=== PATIENT | male | born 1990 | race Caucasian/White ===

== ENCOUNTER → 2016-08-27 | Outpatient (CLI) | payer OTHER ==
[2016-08-27 14:42] LABS: CHOLESTEROL/HDL RATIO 2.4
== END | disposition home or self-care (01) ==
LOC: C.LABBC 09:24
PROVIDERS: ATTEND Family Medicine
DX: E78.2 Mixed hyperlipidemia (principal); R94.5 Abnormal results of liver function studies

== ENCOUNTER 2017-11-09 17:22 | Emergency (ER) | payer OTHER ==
[~2017-11-09] VITALS: Ht 188 cm; Wt 75.2 kg
[2017-11-09 17:27] VITALS: TEMP 36.7; Ht 188 cm; Wt 75.2 kg
[2017-11-09] MEDS ORDERED: KETOROLAC TROMETHAMINE 30 MG/ML VIAL IV STA (17:38)
[2017-11-09] MEDS ORDERED: SODIUM CHLORIDE 0.9% 1000ML 1,000 ML IV ONE (17:45)
[2017-11-09 18:01] LABS: BASO % 0.2 %; BASO ABS # 0.02 K/uL (0-0.2); EOS % 2.1 %; EOS ABS # 0.18 K/uL (0-0.5); HEMATOCRIT 44.5 % (42-52); IG# 0.03 K/uL (0.00-0.02); LYMPH % 23.6 %; LYMPH ABS # 1.99 K/uL (1.2-3.4); MEAN CELL VOLUME 85.6 fL (80-100); MEAN CORPUSCULAR HEMOGLOBIN 30.8 pg (25-34); MEAN PLATELET VOLUME 9.4 fL (7.4-10.4); MONO % 6.6 %; MONO ABS # 0.56 K/uL (0.11-0.59); NEUT % 67.1 %; NEUT ABS # 5.65 K/uL (1.4-6.5); PLATELET COUNT 254 K/uL (130-400); RED CELL DISTRIBUTION WIDTH CV 12.3 % (11.5-14.5); RED CELL DISTRIBUTION WIDTH SD 38.5 fL (36.4-46.3); WHITE BLOOD COUNT 8.43 K/uL (4.8-10.8)
[2017-11-09] MEDS ORDERED: INDO-22 PO (18:01)
[2017-11-09 18:18] LABS: CALCIUM 9.4 mg/dl (8.5-10.1); CREATININE 1.07 mg/dl (0.60-1.40); POTASSIUM 3.6 mmol/L (3.5-5.1); URIC ACID 7.8 mg/dl (2.6-7.2)
--- NOTE | 2017-11-09 18:41 | DIAGNOSTIC IMAGING REPORT ---
RIGHT FOOT 3 VIEWS CLINICAL HISTORY: Right first toe pain. Reported history of gout. FINDINGS: 3 views of the right foot are obtained. No prior studies are available for comparison at the time of dictation. The skeletal structures are well mineralized. No fracture is seen. No bony erosion is identified. The joint spaces of the foot are preserved. Mild spurring is seen along the lateral aspect of the first metatarsal head. Mild soft tissue swelling is suggested overlying the first metatarsophalangeal joint. No soft tissue calcifications are identified. IMPRESSION: 1. No acute bony abnormality is seen in the right foot. 2. Mild spurring is seen along the lateral aspect of the first metatarsal head. No erosive change is identified. 3. Mild soft tissue swelling is suggested overlying the first metatarsophalangeal joint. Electronically signed by: Azam Juarez M.D. 11/09/2017 6:39 PM Dictated Date/Time: 11/09/2017 6:38 PM
[2017-11-09] MEDS ORDERED: PRED20TA PO (19:14)
[2017-11-09] MEDS ORDERED: NORCO 5/325MG HOME PACK PO ONE (19:15)
[2017-11-09 19:24] VITALS: BP 148/96; PULSE 67; O2SAT 100
--- NOTE | 2017-11-09 22:32 | EMERGENCY ROOM VISIT NOTE ---
History First contact with patient: 17:31 Chief Complaint: TOE PAIN, INJURY Stated Complaint: EXTREME PAIN IN RIGHT BIG TOE History of Present Illness The patient is a 27 year old male who presents to the Emergency Room with complaints of significant 10/10 pain in the right great toe. The patient states that his symptoms started worsening today while playing softball. He has difficulty walking because of the pain. He does not report distinct injury or trauma. He is having pain primarily at the base of the great toe without radiation. No fevers or chills. He does have a history of gout in the past, and did try indomethacin without significant improvement of symptoms. Review of Systems More than 10 systems were reviewed and otherwise negative with the exception of history of present illness. Past Medical/Surgical History History of gout Family History No pertinent family history Social History Smoking Status: Never Smoker Occupation Status: [employer] student Current/Historical Medications Scheduled Indomethacin (Indocin), Unknown Dose PO UD Prednisone (Prednisone), 0 PO DAILY Physical Exam Vital Signs Date Time Temp Pulse Resp B/P (MAP) Pulse Ox O2 Delivery O2 Flow Rate FiO2 11/09/17 19:24 67 20 148/96 100 11/09/17 17:27 36.7 60 20 166/95 100 Room Air Physical Exam VITALS: Vitals are noted on the nurse's note and reviewed by myself. Vital signs stable. GENERAL: Well-developed, well-nourished, white male who appears mildly uncomfortable secondary to his stated complaint. HEAD: Normocephalic atraumatic. HEART: Regular rate and rhythm without murmurs gallops or rubs. LUNGS: Clear to auscultation bilaterally without wheezes, rales or rhonchi. No retractions or accessory muscle use. MUSCULOSKELETAL: Erythema and edema is appreciated to the MTP of the right great toe. This area is exquisitely tender on palpation. There is some surrounding erythema, but no lymphangitic streaking. Neurovascular status is intact to the remaining toes and feet on the right foot. No tenderness of the right ankle. Medical Decision & Procedures ER Provider Diagnostic Interpretation: RIGHT FOOT 3 VIEWS CLINICAL HISTORY: Right first toe pain. Reported history of gout. FINDINGS: 3 views of the right foot are obtained. No prior studies are available for comparison at the time of dictation. The skeletal structures are well mineralized. No fracture is seen. No bony erosion is identified. The joint spaces of the foot are preserved. Mild spurring is seen along the lateral aspect of the first metatarsal head. Mild soft tissue swelling is suggested overlying the first metatarsophalangeal joint. No soft tissue calcifications are identified. IMPRESSION: 1. No acute bony abnormality is seen in the right foot. 2. Mild spurring is seen along the lateral aspect of the first metatarsal head. No erosive change is identified. 3. Mild soft tissue swelling is suggested overlying the first metatarsophalangeal joint. Laboratory Results 11/09/17 17:50 Red Blood Count 5.20, Mean Corpuscular Volume 85.6, Mean Corpuscular Hemoglobin 30.8, Mean Corpuscular Hemoglobin Concent 36.0, Mean Platelet Volume 9.4, Neutrophils (%) (Auto) 67.1, Lymphocytes (%) (Auto) 23.6, Monocytes (%) (Auto) 6.6, Eosinophils (%) (Auto) 2.1, Basophils (%) (Auto) 0.2, Neutrophils # (Auto) 5.65, Lymphocytes # (Auto) 1.99, Monocytes # (Auto) 0.56, Eosinophils # (Auto) 0.18, Basophils # (Auto) 0.02 11/09/17 17:50 Test 11/09/17 17:50 White Blood Count 8.43 K/uL (4.8-10.8) Red Blood Count 5.20 M/uL (4.7-6.1) Hemoglobin 16.0 g/dL (14.0-18.0) Hematocrit 44.5 % (42-52) Mean Corpuscular Volume 85.6 fL (80-100) Mean Corpuscular Hemoglobin 30.8 pg (25-34) Mean Corpuscular Hemoglobin Concent 36.0 g/dl (32-36) Platelet Count 254 K/uL (130-400) Mean Platelet Volume 9.4 fL (7.4-10.4) Neutrophils (%) (Auto) 67.1 % Lymphocytes (%) (Auto) 23.6 % Monocytes (%) (Auto) 6.6 % Eosinophils (%) (Auto) 2.1 % Basophils (%) (Auto) 0.2 % Neutrophils # (Auto) 5.65 K/uL (1.4-6.5) Lymphocytes # (Auto) 1.99 K/uL (1.2-3.4) Monocytes # (Auto) 0.56 K/uL (0.11-0.59) Eosinophils # (Auto) 0.18 K/uL (0-0.5) Basophils # (Auto) 0.02 K/uL (0-0.2) RDW Standard Deviation 38.5 fL (36.4-46.3) RDW Coefficient of Variation 12.3 % (11.5-14.5) Immature Granulocyte % (Auto) 0.4 % Immature Granulocyte # (Auto) 0.03 K/uL (0.00-0.02) Anion Gap 8.0 mmol/L (3-11) Est Creatinine Clear Calc Drug Dose 112.3 ml/min Estimated GFR () 111.2 Estimated GFR (Non- 96.0 BUN/Creatinine Ratio 10.4 (10-20) Uric Acid 7.8 mg/dl (2.6-7.2) Calcium Level 9.4 mg/dl (8.5-10.1) Lyme Disease IgG Antibody NEG (NEG) Lyme Disease IgM Antibody NEG (NEG) Medications Administered Medications (Trade) Dose Ordered Sig/Baudilio Route Start Time Stop Time Status Last Admin Dose Admin Sodium Chloride 1,000 ml @ 999 mls/hr Q1H1M ONCE IV 11/09/17 17:45 11/09/17 18:45 DC 11/09/17 17:54 999 MLS/HR Ketorolac Tromethamine (Toradol Inj) 30 mg NOW STAT IV 11/09/17 17:38 11/09/17 17:40 DC 11/09/17 17:54 30 MG Acetaminophen/ Hydrocodone Bitart (Rhodes 5/325mg Home Pack) 1 homepack UD ONCE PO 11/09/17 19:15 11/09/17 19:16 DC 11/09/17 19:15 1 HOMEPACK ED Course Physical exam and history were performed. Nursing notes, EMR, and Medication List were personally reviewed. Patient appears to have pain and swelling to his right great toe. He believes this is related to gout and did start indomethacin without any improvement of symptoms. IV access was established and labs were obtained. The patient was hydrated with normal saline and given IV Toradol for comfort. I did elect perform an x-ray because of his symptoms. The patient's blood work is as above and was reviewed. He does not have a significantly elevated white blood cell count, gross anemia, bandemia, or significant electrolyte imbalance. He does not appear to have kidney injury. His uric acid is elevated which does supports a diagnosis of gout. X-ray does not show erosive findings per my and radiology's interpretation. Overall the patient did have some improvement of his discomfort with the Toradol. He is to continue the indomethacin as previously instructed. I will give him a tapering dose of prednisone to help with symptoms, as well as a home pack of Vicodin. The patient is to follow with his primary care physician for further care management. He was otherwise invited back to the ER with any new, worsening, or concerning symptoms. The chart was completed utilizing [employer] Voice Recognition Software. Grammatical errors, random word insertions, pronoun errors, and incomplete sentences are an occasional consequence of this system due to software limitations, ambient noise, and hardware issues. Any formal questions or concerns about the content, text, or information contained within the body of this dictation should be directly addressed to the provider for clarification. . Medical Decision Differential diagnosis includes, but is not limited to: Sprain, strain, fracture , dislocation, subluxation, contusion, gout, infection, and others Impression Primary Impression: Gout attack Departure Information Dispostion Home / Self-Care Condition GOOD Prescriptions Prednisone (Prednisone) 20 Mg Tab 0 PO DAILY, #18 TAB 3 DAILY FOR 3 DAYS, THEN 2 DAILY FOR 3 DAYS, THEN 1 DAILY FOR 3 DAYS. Prov: Arthur Bryant PA-C 11/09/17 Forms HOME CARE DOCUMENTATION FORM, IMPORTANT VISIT INFORMATION Patient Instructions My [facility] Additional Instructions You were seen and evaluated today on an emergency basis only. This is not a substitute for, or an effort to provide, complete comprehensive medical care. It is not possible to recognize and treat all injuries or illnesses in a single emergency department visit. For this reason it is recommended that you followup with your primary care physician this week for recheck of your condition. Take prednisone as prescribed. Rhodes (hydrocodone/acetaminophen) 5/325 mg (homepack) every 6 hours as needed for worsening breakthrough pain. Do not drink or drive on Rhodes. This medication will likely make you tired. Do not take Rhodes and Tylenol at the same time as both contain acetaminophen. Rhodes may cause constipation. You may wish to take an [id number] stool softener like Colace if this occurs. You are welcome to return to the emergency department anytime with new, worsening, or concerning symptoms.
== END 2017-11-09 19:25 | disposition home or self-care (01) ==
LOC: C.EDB 17:24 → C.EDA 19:25
DX: M10.071 Idiopathic gout, right ankle and foot (principal)